=== PATIENT | male | born 1935 | race Caucasian/White ===

== ENCOUNTER 2017-02-24 10:43 | Day surgery (SDC) | payer MEDICARE, BC ==
[2017-02-24] MEDS ORDERED: LIDOCAINE HCL 2% 20 ML VIAL MC ONE (10:44)
[2017-02-24] MEDS ORDERED: CEFAZOLIN 1 G VIAL MC ONE (10:44)
[2017-02-24] MEDS ORDERED: IV LACTATED RINGERS SOLUTION 1,000 ML BAG IV ONE (10:44)
[2017-02-24] MEDS ORDERED: PROPOFOL 200 MG/20 ML BOTTLE IV ONE (10:44)
[2017-02-24] MEDS ORDERED: HEPARIN SODIUM,PORCINE 10,000 UNITS/10 ML VIAL ONE (11:36)
[2017-02-24] MEDS ORDERED: LIDOCAINE HCL 1% 20 ML VIAL ONE (11:36)
[2017-02-24] MEDS ORDERED: HEPARIN/NS 500 ML ONE (11:36)
[2017-02-24] MEDS ORDERED: BUPIVACAINE 0.25% 30 ML VIAL ONE (11:37)
[2017-02-24 11:54] LABS: BASOPHILS % (AUTO) 0.4 % (0.0-2.0); EOSINOPHILS # (AUTO) 0.1 K/uL (0.0-0.7); EOSINOPHILS % (AUTO) 3.2 % (0.0-7.0); HEMATOCRIT 38.4 % (36.7-47.1); HEMOGLOBIN 12.5 g/dL (12.5-16.3); LYMPHOCYTES # (AUTO) 0.3 K/uL (20.0-40.0); LYMPHOCYTES % (AUTO) 9.2 % (20.5-51.5); MEAN CORPUSCULAR HEMOGLOBIN 30.4 uug (23.8-33.4); MEAN CORPUSCULAR HGB CONC 33 g/dL (32.5-36.3); MEAN CORPUSCULAR VOLUME 93.1 fL (73.0-96.2); MONOCYTES # (AUTO) 0.8 K/uL (2.0-10.0); MONOCYTES % (AUTO) 24.5 % (0.0-11.0); NEUTROPHILS # (AUTO) 2.2 K/uL (1.8-8.9); NEUTROPHILS % (AUTO) 62.7 % (38.5-71.5); PLATELET COUNT (AUTO) 87 K/uL (152-348); RED BLOOD CELL COUNT(AUTO) 4.13 MIL/uL (4.06-5.63); WHITE BLOOD COUNT (AUTO) 3.5 K/uL (3.6-10.2)
[2017-02-24 11:59] LABS: CARBON DIOXIDE 26 mmol/L (21-32); CHLORIDE 105 mmol/L (98-107); CREATININE 1.1 mg/dL (0.6-1.3); GLUCOSE 94 mg/dL (74-106); POTASSIUM 4.2 mmol/L (3.5-5.1); UREA NITROGEN, BLOOD 23 mg/dL (7-18)
[2017-02-24 12:08] LABS: ALANINE AMINOTRANSFERASE 27 U/L (16-63); ALKALINE PHOSPHATASE 73 U/L (50-136); ASPARTATE AMINOTRANSFERASE 16 U/L (15-37); TOTAL PROTEIN, SERUM 6.6 g/dL (6.4-8.2)
[2017-02-24 12:26] LABS: BAND % (MANUAL) 3 % (0-10); EOSINOPHILS % (MANUAL) 3 % (0-8); LYMPHOCYTES % (MANUAL) 12 % (20-40); MONOCYTES % (MANUAL) 15 % (2-10); NEUTROPHILS % (MANUAL) 67 % (42-75)
[2017-02-24] MEDS ORDERED: POLYMYXIN B SULFATE 500,000 UNITS, BACITRACIN 50,000 UNITS, NORMAL SALINE 20 ML MC ONE ×3 (12:45)
[2017-02-24] MEDS ORDERED: FENTANYL CITRATE 100 MCG/2 ML AMPUL ONE (12:48)
[2017-02-24] MEDS ORDERED: BUPIVACAINE/EPI PF 0.25% 30 ML VIAL ONE (12:54)
[2017-02-24] MEDS ORDERED: BACITRACIN 50,000 UNITS VIAL ONE (13:32)
== END 2017-02-24 15:25 | disposition home or self-care (01) ==
LOC: DS 10:43
PROVIDERS: ATTEND Surgery
DX: C90.00 Multiple myeloma not having achieved remission (principal); D69.6 Thrombocytopenia, unspecified
CPT/HCPCS: 36415; 71010; 85025; 85730; 93005; A4649; C1713; J0690; J1644; J3010; J3490; J7120

== ENCOUNTER 2018-02-09 09:57 | Emergency (ER) | payer MEDICARE, BC ==
[~2018-02-09] VITALS: Ht 167.6 cm; Wt 74.4 kg
--- NOTE | 2018-02-09 09:57 | NUR ---
PT IN ROOM 1A, ER MD AT BEDSIDE TO EVALUATE THE PT.
--- NOTE | 2018-02-09 10:00 | NUR ---
ASSISSTED ANNIKA RAMIREZ TO EVALUATE THE NIHSS, SCORED 25.
--- NOTE | 2018-02-09 10:03 | NUR ---
Ashish retana in ED - 02/09/18 at 1015 by ANAT[facility] TELE STROKE ACTIVATD BY
--- NOTE | 2018-02-09 10:03 | NUR ---
CODE STROKE CALLED BY ANNIKA RAMIREZ
--- NOTE | 2018-02-09 10:05 | NUR ---
PT TO CT SCAN
--- NOTE | 2018-02-09 10:06 | NUR ---
CALLED TELE STROKE AT [phone], TALKED TO YURIDIA.
--- NOTE | 2018-02-09 10:11 | NUR ---
DR. SHAIKH CALLED BACK FROM TELE STROKE
[2018-02-09] MEDS ORDERED: IOHEXOL 350 100 ML INFUS..BTL ONE (10:24)
[2018-02-09] MEDS ORDERED: SWABABLE VALVE TRANSFER SET EA MC ONE (10:24)
[2018-02-09] MEDS ORDERED: IV NORMAL SALINE 250 ML IV ONE (10:24)
--- NOTE | 2018-02-09 10:30 | NUR ---
DR. LAYTON TALKING TO DR. STORM
--- NOTE | 2018-02-09 10:50 | NUR ---
family members at bedside, talking to er md.
[2018-02-09 11:00] LABS: BASOPHILS % (AUTO) 0.6 % (0.0-2.0); EOSINOPHILS % (AUTO) 0.8 % (0.0-7.0); HEMATOCRIT 36.7 % (36.7-47.1); HEMOGLOBIN 11.9 g/dL (12.5-16.3); LYMPHOCYTES # (AUTO) 0.7 K/uL (20.0-40.0); MEAN CORPUSCULAR HEMOGLOBIN 30.7 uug (23.8-33.4); MEAN CORPUSCULAR HGB CONC 32 g/dL (32.5-36.3); MEAN CORPUSCULAR VOLUME 94.9 fL (73.0-96.2); MONOCYTES # (AUTO) 1.6 K/uL (2.0-10.0); MONOCYTES % (AUTO) 27.8 % (0.0-11.0); NEUTROPHILS # (AUTO) 3.4 K/uL (1.8-8.9); NEUTROPHILS % (AUTO) 58.8 % (38.5-71.5); PLATELET COUNT (AUTO) 79 K/uL (152-348); RED BLOOD CELL COUNT(AUTO) 3.87 MIL/uL (4.06-5.63); WHITE BLOOD COUNT (AUTO) 5.7 K/uL (3.6-10.2)
--- NOTE | 2018-02-09 11:04 | NUR ---
patient in room vitals as follow. Hr 65, sbp 120/59. RR 14.
--- NOTE | 2018-02-09 11:07 | NUR ---
message left to Katarzyna Talbot with call back number as requested by Dr. Patricia.
[2018-02-09 11:08] LABS: CARBON DIOXIDE 27 mmol/L (21-32); CHLORIDE 103 mmol/L (98-107); CREATININE 1.9 mg/dL (0.6-1.3); GLUCOSE 98 mg/dL (74-106); POTASSIUM 4.2 mmol/L (3.5-5.1); UREA NITROGEN, BLOOD 36 mg/dL (7-18)
[2018-02-09 11:14] LABS: ALANINE AMINOTRANSFERASE 22 U/L (16-63); ALKALINE PHOSPHATASE 53 U/L (50-136); ASPARTATE AMINOTRANSFERASE 22 U/L (15-37); BILIRUBIN,DIRECT 0.3 mg/dL (0.0-0.2); BILIRUBIN,TOTAL 1.1 mg/dL (0.2-1.0); CHOLESTEROL 128 mg/dL (<200); HDL CHOLESTEROL 64 mg/dL (40-60); TOTAL PROTEIN, SERUM 5.7 g/dL (6.4-8.2); TRIGLYCERIDES 91 MG/DL (30-150)
--- NOTE | 2018-02-09 11:14 | NUR ---
dr. rosario talking to ariella jeong over the phone
--- NOTE | 2018-02-09 11:18 | NUR ---
ariella jeong talking to dr. wasserman
[2018-02-09] MEDS ORDERED: BISA10SU61 RC (11:23)
[2018-02-09] MEDS ORDERED: ACET325T53 PO (11:23)
[2018-02-09] MEDS ORDERED: TAMS0.4C34 PO (11:23)
[2018-02-09] MEDS ORDERED: RIVA1PAT TD (11:23)
[2018-02-09] MEDS ORDERED: DEXA4TAB PO (11:23)
[2018-02-09] MEDS ORDERED: LACT-239 PO (11:23)
[2018-02-09] MEDS ORDERED: ASPI81TA31 PO (11:23)
[2018-02-09] MEDS ORDERED: GABA-534 PO (11:23)
[2018-02-09] MEDS ORDERED: ATOR20TA PO (11:23)
[2018-02-09] MEDS ORDERED: TURM1CAP2 PO (11:23)
[2018-02-09] MEDS ORDERED: CALC-903 PO (11:23)
[2018-02-09] MEDS ORDERED: POMA4CAP PO (11:23)
[2018-02-09] MEDS ORDERED: FINA5TAB11 PO (11:23)
[2018-02-09] MEDS ORDERED: LEVO5TAB29 PO (11:23)
[2018-02-09] MEDS ORDERED: CHOL400T PO (11:23)
[2018-02-09 11:32] LABS: EOSINOPHILS % (MANUAL) 2 % (0-8); LYMPHOCYTES % (MANUAL) 13 % (20-40); MONOCYTES % (MANUAL) 26 % (2-10); NEUTROPHILS % (MANUAL) 59 % (42-75)
--- NOTE | 2018-02-09 12:00 | NUR ---
A call to [facility] for possible transfer, call done by Gagan Johnson. Awaiting for admitting information.
--- NOTE | 2018-02-09 12:25 | NUR ---
2nd call to Dr. Austin and spoke with Dr. Patricia over the phone.
--- NOTE | 2018-02-09 12:26 | NUR ---
Dr. Costa on the phone and talking to Dr. Patricia.
--- NOTE | 2018-02-09 12:29 | NUR ---
in a meeting with family discussing possible pt's transfer.
--- NOTE | 2018-02-09 13:02 | NUR ---
Full report given to rn. Lee at [facility]. pt's family at bedside.
--- NOTE | 2018-02-09 13:25 | NUR ---
Emergency transfer team from [place] in the unit, report given to Gagan Wan vitals as follow. HR 61, 117/66. NIH unchanged 29
[2018-02-09 13:28] VITALS: BP 117/66
--- NOTE | 2018-02-09 13:38 | NUR ---
pt. taken via [facility] ambulance.
== END 2018-02-09 13:41 | disposition short-term general hospital (02) ==
LOC: ER 09:57
DX: I63.9 Cerebral infarction, unspecified (principal); I10 Essential (primary) hypertension; Z88.5 Allergy status to narcotic agent; Z79.82 Long term (current) use of aspirin; Z79.899 Other long term (current) drug therapy
CPT/HCPCS: 36415; 70450; 70496; 70498; 71045; 80048; 80061; 80076; 83605; 84484; 85025; 85730; 86850; 86870; 86900; 86901; 87040 ×2; 93005; 99291; Q9967; 70030-TC; A4663; J7050